=== PATIENT | male | born 1995 | race Caucasian/White ===

== ENCOUNTER 2024-07-22 18:47 | Emergency (ER) | payer SELFPAY ==
[~2024-07-22] VITALS: Ht 172.7 cm; Wt 100.0 kg
[2024-07-22 19:04] VITALS: BP 141/82; PULSE 84; RESP 16; TEMP 36.6; O2SAT 99
[2024-07-22] MEDS ORDERED: METH-653 MT (22:39)
[2024-07-22] MEDS ORDERED: IBUP-2029 MT (22:39)
[2024-07-22] MEDS: KETOROLAC 30MG/ML VIAL IM ONE (22:50)
== END 2024-07-22 23:09 | disposition home or self-care (01) ==
LOC: ER 18:47
DX: S56.919A Strain of unspecified muscles, fascia and tendons at forearm level, unspecified arm, initial encounter (principal); X58.XXXA Exposure to other specified factors, initial encounter; Y93.89 Activity, other specified; Y92.89 Other specified places as the place of occurrence of the external cause; Y99.8 Other external cause status
CPT/HCPCS: 99283; 73090; 96372; J1885